=== PATIENT | male | born 1975 | race Caucasian/White ===

== ENCOUNTER 2018-05-08 01:49 | Emergency (ER) | END 2018-05-08 05:15 | disposition home or self-care (01) ==

== ENCOUNTER 2018-06-20 13:51 | Emergency (ER) | payer MEDICAID ==
[~2018-06-20] VITALS: Ht 160 cm; Wt 70.0 kg
[~2018-06-20 13:51] MED LIST: MAG355OR14 PO; NO MEDS; OMEP20CA16 PO; ONDA4TAB8 PO
[2018-06-20 13:56] VITALS: Ht 160 cm; Wt 70.0 kg
--- NOTE | 2018-06-20 13:58 | ERD ---
ER Documentation Chief Complaint Chief Complaint Chest pain HPI 42-year-old male presents to the ED via rescue ambulance for evaluation of chest pain. Patient states he was walking in his house when he experienced acute onset of severe, sharp and pressure-like left upper chest pain which radiated to his right neck with palpitations, mild shortness of breath and nausea but no vomiting or diaphoresis. He subsequently fell to the floor and and his eyes were open but according to was not responsive for less than a minute. No reported seizure activity, urinary or fecal incontinence. Paramedics were called he was treated with aspirin and sublingual nitroglycerin spray with some relief. Denies abdominal pain or back pain. No headache, visual changes, focal weakness or numbness. No URI symptoms or cough. No leg pain or swelling. No fevers or chills. ROS All systems reviewed and are negative except as per history of present illness. Medications Home Meds Discontinued Reported Medications [No Meds] No Conflict Check 06/26/10 [None] No Conflict Check 09/27/09 Discontinued Scripts Ondansetron Hcl* (Zofran*) 4 Mg Tablet, 4 MG PO Q6H for NAUSEA AND/OR VOMITING, #30 TAB Prov:KYA FRASER MD 05/08/18 Omeprazole* (Omeprazole*) 20 Mg Capsule.dr, 20 MG PO DAILY, #30 CAP Prov:KYA FRASER MD 05/08/18 Mag Hydrox/Al Hydrox/Simeth (Maalox Advanced Suspension) 355 Ml Oral.susp, 2 TSP PO TID PRN for PAIN, #24 OZ Prov:KYA FRASER MD 05/08/18 Allergies Allergies: Coded Allergies: ibuprofen (Verified Allergy, Unknown, 06/20/18) PMhx/Soc Reviewed in chart. As per HPI. History of Surgery: Yes (RIGHT SHOULDER SURGERY, APPY ) Anesthesia Reaction: No Hx Neurological Disorder: No Hx Respiratory Disorders: No Hx Cardiac Disorders: No Hx Psychiatric Problems: No Hx Miscellaneous Medical Probl: No Hx Alcohol Use: Yes Hx Substance Use: No Hx Tobacco Use: No FmHx No sudden cardiac or stroke Physical Exam Vitals Temperature: 97.8. Pulse: 96. Respirations: 18. Blood pressure 137/78. O2 saturation 97% on room air. Physical Exam Const: Moderate distress. Anxious. Head: Atraumatic Eyes: Normal Conjunctiva ENT: Normal External Ears, Nose and Mouth. Neck: Full range of motion. Nontender. Carotids 2+ bilaterally without bruits. Resp: Breath sounds are equal and clear to auscultation bilaterally Cardio: Regular rate and rhythm, no murmurs Chest Wall: No tenderness, ecchymosis or crepitus. Abd: Soft, obese, non tender, non distended. Normal bowel sounds. No rebound or guarding. No masses or abnormal pulsations. Skin: No petechiae or rashes Back: No midline or flank tenderness Ext: No cyanosis, or edema. Pulses 4+ in all extremities. Neur: Awake and alert. No focal deficit. Psych: Cooperative, anxious but not depressed. Results 24 hrs Laboratory Tests Test 06/20/18 14:10 06/20/18 17:35 White Blood Count 10.0 10^3/ul Red Blood Count 5.24 10^6/ul Hemoglobin 14.6 g/dl Hematocrit 43.4 % Mean Corpuscular Volume 82.8 fl Mean Corpuscular Hemoglobin 27.9 pg Mean Corpuscular Hemoglobin Concent 33.6 g/dl Red Cell Distribution Width 12.7 % Platelet Count 312 10^3/UL Mean Platelet Volume 9.6 fl Immature Granulocytes % 0.300 % Neutrophils % 68.0 % Lymphocytes % 22.1 % Monocytes % 4.8 % Eosinophils % 4.2 % Basophils % 0.6 % Nucleated Red Blood Cells % 0.0 /100WBC Immature Granulocytes # 0.030 10^3/ul Neutrophils # 6.8 10^3/ul Lymphocytes # 2.2 10^3/ul Monocytes # 0.5 10^3/ul Eosinophils # 0.4 10^3/ul Basophils # 0.1 10^3/ul Nucleated Red Blood Cells # 0.0 10^3/ul Prothrombin Time 12.2 Sec Prothrombin Time Ratio 1.0 INR International Normalized Ratio 0.89 Activated Partial Thromboplast Time 26.4 Sec D-Dimer 314.00 ng/ml D-Dimer Comment Sodium Level 139 mmol/L Potassium Level 3.8 mmol/L Chloride Level 103 mmol/L Carbon Dioxide Level 24 mmol/L Anion Gap 12 Blood Urea Nitrogen 11 mg/dl Creatinine 0.83 mg/dl Est Glomerular Filtrat Rate mL/min > 60 mL/min Glucose Level 110 mg/dl Calcium Level 9.6 mg/dl Total Bilirubin 0.2 mg/dl Direct Bilirubin 0.00 mg/dl Indirect Bilirubin 0.2 mg/dl Aspartate Amino Transf (AST/SGOT) 37 IU/L Alanine Aminotransferase (ALT/SGPT) 61 IU/L Alkaline Phosphatase 77 IU/L Troponin I < 0.012 ng/ml < 0.012 ng/ml Total Protein 8.5 g/dl Albumin 4.9 g/dl Globulin 3.60 g/dl Albumin/Globulin Ratio 1.36 Current Medications Medications Dose Sig/Gildardo Start Time Status Last (Trade) Ordered Route PRN Stop Time Admin Dose Reason Admin Sodium 1,000 ml @ Q1H STAT 06/20/18 DC 06/20/18 Chloride 1,000 mls/hr IV 15:44 15:51 06/20/18 16:43 650 mg ONCE ONCE 06/20/18 DC 06/20/18 Acetaminophen PO 16:00 16:32 (Tylenol 06/20/18 16:01 Tab) IV Flush 10 ml STK-MED 06/20/18 DC 06/20/18 (NS 10 ml) ONCE .ROUTE 16:28 16:51 06/20/18 16:29 Sodium 100 ml @ ud STK-MED 06/20/18 DC 06/20/18 Chloride ONCE .ROUTE 16:28 16:51 06/20/18 16:29 Iohexol 100 ml @ ud STK-MED 06/20/18 DC 06/20/18 ONCE .ROUTE 16:28 16:52 06/20/18 16:29 Procedures/MDM DOCUMENTS REVIEWED: ED nurse, prior records EKG: Time: 1411. Sinus rhythm. Ventricular rate 85. No acute ST segment elevation or depression. No ectopy. Normal axis. My Interpretation IMAGING: PROCEDURE: XR Chest. CLINICAL INDICATION: Chest Pain. TECHNIQUE: Single frontal view of the chest was obtained COMPARISON: None FINDINGS: The heart and mediastinum are within normal limits. The study is hypoventilatory which compresses the lung parenchyma and causes vascular crowding. There is mild patchy bibasilar atelectasis. There is no pleural effusion or pneumothorax. The bones and soft tissue show no acute change. IMPRESSION: 1. Hypoventilatory study which compresses the lung parenchyma and causes vascular crowding. 2. Mild patchy bibasilar atelectasis. RPTAT:AAJJ Kwabena Morrison Physician Date Time Electronically viewed and signed by Kwabena Morrison Physician on 06/20/2018 14:13 [facility]-year-old male presents to the ED via rescue ambulance for evaluation of chest pain. CBC negative for anemia, leukocytosis or thrombocytopenia. Chemistry reveals no evidence of electrolyte abnormalities , renal insufficiency or hyperglycemia. Troponin is negative. EKG negative for ischemia, cardiac dysrhythmia or heart block. Chest x-ray is unremarkable for pneumonia, congestive heart failure or mediastinal widening. D-dimer is negative. Patient presents with chest pain and syncope of uncertain etiology. Differential includes but is not limited to acute coronary syndrome, cardiac dysrhythmia, aortic dissection, pulmonary embolism, pneumonia, pneumothorax, gastritis/GERD and vasovagal syncope. No headache, focal neurologic deficit, signs of CVA, TIA or carotid artery dissection hence no indication for neuroimaging. Regards to the chest pain, heart score is 1 and initial EKG and troponin are negative. Low risk for acute coronary syndrome. Low risk for pulmonary embolism and d-dimer is negative. Considering his symptoms a CT angiogram is pending to evaluate for aortic dissection. Repeat EKG and troponin are also pending. The studies are negative patient should be stable for discharge with urgent outpatient follow-up. Blood Pressure Assessment: Patient's blood pressure was elevated (>120/80) but appears stable without evidence of hypertension emergency or urgency. The patient was counseled about the risks of hypertension and urged to pursue outpatient monitoring and therapy within a week with their primary care physician. Time:15:00. Care transferred to Dr Petersen for final disposition pending reevaluation, CT angiogram, repeat EKG and troponin. Departure Diagnosis: Primary Impression: Chest pain with low risk for cardiac etiology Additional Impression: Hypertension Hypertension type: essential hypertension Qualified Codes: I10 - Essential (primary) hypertension Condition: Stable PARESH MCMILLAN MD Jun 20, 2018 13:58
[2018-06-20] MEDS ORDERED: SOD CHLORIDE 0.9% 1,000 ML IV STA (15:44)
[2018-06-20] MEDS ORDERED: ACETAMINOPHEN 325 MG TAB PO ONE (16:00)
[2018-06-20] MEDS ORDERED: IOHEXOL 100 ML ONE (16:28)
[2018-06-20] MEDS ORDERED: SOD CHLORIDE 0.9% 100 ML ONE (16:28)
--- NOTE | 2018-06-20 18:28 | QN ---
Documentation Comment Patient was signed out to me by Dr. Moffett pending a CTA of the chest, repeat EKG, and repeat troponin at 3 hours. His repeat troponin was negative. His repeat EKG did not show any acute abnormalities. CTA did not show any signs of pulmonary embolism or aortic dissection. Patient's symptoms have resolved. On reevaluation, he appears well with stable vitals. He will be discharged as his heart score is low and workup is unremarkable. Advised to follow-up with primary care doctor in 2-3 days. Return precautions given. EKG: Rate/Rhythm: Normal Sinus Rhythm QRS, ST, T-waves: No changes consistent w/ acute ischemia Impression: No evidence of ischemia or arrhythmia JEANIE TANG MD Jun 20, 2018 18:28
[2018-06-20 18:42] VITALS: BP 122/81; PULSE 69; RESP 16
== END 2018-06-20 19:07 | disposition home or self-care (01) ==
LOC: E/R 13:51
DX: R07.9 Chest pain, unspecified (principal)
CPT/HCPCS: 71045; 71275; 80053; 84484; 85025; 85378; 85610; 85730; 93005; J7030; Q9967; Z7502; Z7610